=== PATIENT | male | born 1965 | race Caucasian/White ===

== ENCOUNTER 2018-10-31 09:20 | Outpatient (CLI) | payer OTHER | END 2018-10-31 09:21 | disposition critical access hospital (66) | LOC: EMS 09:20 | PROVIDERS: ATTEND Surgery | DX: M54.9 Dorsalgia, unspecified (principal) | CPT/HCPCS: A0425; A0429 ==

== ENCOUNTER 2018-10-31 09:55 | Emergency (ER) | payer OTHER ==
[2018-10-31] MEDS ORDERED: KETOROLAC 60 MG/2 ML VIAL IM STA (11:38)
[2018-10-31] MEDS ORDERED: CHERRY SYRUP 10 ML UDC PO ONE (11:39)
[2018-10-31] MEDS ORDERED: LIDOCAINE PATCH 5% TOP STA (11:39)
[2018-10-31] MEDS ORDERED: DEXAMETHASONE 10 MG/ML VIAL PO STA (11:39)
--- NOTE | 2018-10-31 11:40 | ED Physician Documentation ---
PD HPI BACK PAIN - Stated complaint Stated Complaint: BACK PAIN - Chief complaint Chief Complaint: Back Pain - History obtained from History obtained from: Patient, Family - History of Present Illness Timing - onset: Today Timing - details: Still present in ED Location: Lower, Right Quality: Pain Similar symptoms before: Diagnosis (Lumbar strain about six months ago.) - Treatment prior to arrival Treatment prior to arrival: Took one of his 's oxycodone. - Additional information Additional information: The patient is a 52-year-old male who is visiting from [place], and presents with acute onset of low back pain radiating down his right leg. The pain started this morning when the patient bent over to pet his dog. He denies fever, urinary incontinence, numbness or weakness. He has a history of similar symptom s intermittently during the past 6 months, diagnosed as sciatica. Review of Systems Constitutional: denies: Fever Nose: denies: Congestion Cardiac: denies: Chest pain / pressure Respiratory: denies: Dyspnea, Cough GI: denies: Abdominal Pain, Nausea, Vomiting : denies: Dysuria, Incontinent Skin: denies: Rash Musculoskeletal: reports: Back pain. denies: Neck pain, Extremity swelling Neurologic: denies: Focal weakness, Numbness, Headache PD PAST MEDICAL HISTORY - Past Medical History Past Medical History: Yes Cardiovascular: None Respiratory: None Neuro: None Endocrine/Autoimmune: None GI: None : None HEENT: None Psych: None Musculoskeletal: Other Derm: Other Other Past Medical History: sciatica and cellulitis - Past Surgical History Past Surgical History: No - Present Medications Home Medications: Ambulatory Orders Medication Instructions Recorded Confirmed Celecoxib [CeleBREX] 100 mg PO 10/31/18 Cyclobenzaprine [Flexeril] 10 mg PO TID PRN #20 tablet 10/31/18 Hydrocodone/Acetaminophen 1 - 2 each PO Q6H PRN #14 tablet 10/31/18 [Hydrocodon-Acetaminophen 5-325] Lidocaine Patch 5% [Lidoderm Patch] 1 patch TOP DAILY PRN #10 patch 10/31/18 - Allergies Allergies/Adverse Reactions: Allergies Allergy/AdvReac Type Severity Reaction Status Date / Time No Known Drug Allergies Allergy Verified 10/31/18 10:03 - Social History Does the pt smoke?: No Smoking Status: Never smoker PD ED PE NORMAL - Vitals Vital signs reviewed: Yes (normal) - General General: Alert and oriented X 3, Well developed/nourished - HEENT HEENT: Atraumatic, Pharynx benign - Neck Neck: Supple, no meningeal sign, No bony TTP - Cardiac Cardiac: RRR - Respiratory Respiratory: No respiratory distress, Clear bilaterally - Abdomen Abdomen: Soft, Non tender - Back Back: No CVA TTP, No spinal TTP, Other (There is tenderness to palpation in the right sacroiliac region. No tenderness to palpation along the spinous processes.) - Derm Derm: No rash - Extremities Extremities: No edema, No calf tenderness / cord, Other (Straight leg raise test is positive on the right at 25 elevation; negative on the left.) - Neuro Neuro: Alert and oriented X 3, No motor deficit, No sensory deficit Results - Vitals Vitals: Oxygen O2 Source Room air PD MEDICAL DECISION MAKING - ED course Complexity details: re-evaluated patient, considered differential, d/w patient, d/w family ED course: The patient's presentation is most consistent with acute exacerbation of recurrent low back pain, with right sided sciatica. His presentation does not suggest epidural abscess or cauda equina syndrome. Treatment in the emergency department included administration of ketorolac 60 mg IM, dexamethasone 10 mg orally, and application of Lidoderm patch. He reports only slight improvement of his discomfort with the above treatment. He is being discharged with prescriptions for Flexeril, Lidoderm patch, and Vicodin, 14 tablets. I discussed with him and his family symptomatic treatment and outpatient follow-up, as well as potentially worrisome signs or symptoms that should prompt reevaluation in the emergency department. Departure - Departure Disposition: 01 Home, Self Care Clinical Impression: Acute low back pain Qualifiers: Back pain laterality: right Sciatica presence: with sciatica Sciatica laterality: sciatica of right side Qualified Code(s): M54.41 - Lumbago with sciatica, right side Condition: Stable Instructions: ED Sciatica Prescriptions: Cyclobenzaprine [Flexeril] 10 mg PO TID PRN #20 tablet PRN Reason: Spasms Hydrocodone/Acetaminophen [Hydrocodon-Acetaminophen 5-325] 1 - 2 each PO Q6H PRN #14 tablet PRN Reason: pain Lidocaine Patch 5% [Lidoderm Patch] 1 patch TOP DAILY PRN #10 patch PRN Reason: pain Comments: Apply ice pack to your lower back intermittently for the next 3 days. Apply Lidoderm patch daily as prescribed. You can use Flexeril if needed for muscle spasms. You can use Vicodin as prescribed if needed for pain. Follow-up with your primary physician when you return home to [place]. Return to the emergency department if you develop increasing pain, increasing numbness or weakness, or otherwise worsening symptoms. Discharge Date/Time: 10/31/18 12:27
[2018-10-31 12:29] VITALS: BP 137/59
== END 2018-10-31 12:27 | disposition home or self-care (01) ==
LOC: ED 09:55
DX: M54.5 Low back pain (principal)
CPT/HCPCS: 99283; A9270